=== PATIENT | female | born 1950 | race Caucasian/White ===

== ENCOUNTER → 2018-02-27 | Outpatient (CLI) | payer MEDICARE, BC, OTHER ==
[2018-02-27 16:46] LABS: CHOLESTEROL LEVEL 200 MG/DL (<200); CHOLESTEROL RISK RATIO 2.857 (<5); GLUCOSE, FASTING 89 MG/DL (70-100); HDL CHOLESTEROL 70 MG/DL (>40); NON-HDL-C 130 MG/DL; TRIGLYCERIDES LEVEL 65 MG/DL (<150)
[2018-02-27 16:51] LABS: ESTIMATED AVERAGE GLUCOSE 114 MG/DL (60-110); HEMOGLOBIN A1c 5.6 %
== END ==
LOC: M ADAMS 09:50
DX: Z51.81 Encounter for therapeutic drug level monitoring (principal); Z79.899 Other long term (current) drug therapy
CPT/HCPCS: 82947

== ENCOUNTER → 2019-04-21 | Outpatient (REF) | payer MEDICARE, OTHER ==
[~2019-04-21] MED LIST: ACET65TA OR; ASPI81TA83 OR; CALC600T60 PO; CALCIUM WITH VIT D; COUM1TAB18; CYMBALTA PO; FOSA70TA PO; HYDR10TA3 OR; IBUP400T OR; LAMI1TAB6 OR; LATA0.0013 OU; MULTCAP PO; MULTLIQ7; OXYC-141 PO; PERC5TAB12 PO; PERC5TAB8; PROZ20CA11 PO; RISP3TAB16; THERGRAN; TRAZ50TA OR; TRIC145T19; TYLE167L PO; TYLE500T78 PO; VALI10TA; VALI5TAB; VALS40TA; VICO5TAB; VITA100067 PO; XALATAN OU; ZETI10TA; ZOLO100T; haldol PO; viactiv PO
== END ==
LOC: M SFHCPLAZ 17:34
PROVIDERS: ATTEND Dermatology
DX: C44.529 Squamous cell carcinoma of skin of other part of trunk (principal)

== ENCOUNTER → 2019-06-24 | Outpatient (CLI) | payer MEDICARE, BC ==
--- NOTE | 2019-06-24 09:22 | REP ---
BILATERAL SCREENING DIGITAL MAMMOGRAM WITH 3D TOMOSYNTHESIS: There are no palpable abnormalities or other breast complaints. The the patient states she has not had a clinical breast examination in over a year. The the patient states she performs self-breast examinations four times per year. The Tyrer-Cuzick Score is: 12.1% . Comparison is 07/11/2014. There are scattered areas of fibroglandular density. There is no dominant mass, micro calcific cluster or architectural distortion that would indicate malignancy. There are no additional findings on 3D tomosynthesiss. There is no change from the prior study. Impression: BIRADS/ACR category 1 mammogram. Negative. Recommendation: Routine annual screening mammography. This mammogram was interpreted with the aid of a FDA approved computer-aided detection system. A. Negative mammogram reports should not delay biopsy if a dominant or clinically suspicious mass is present. B. Not all breast cancers are identified by mammography or tomosynthesis. C. Adenosis and dense breasts may obscure an underlying neoplasm. Patient letter M1. Electronically Signed by Chester Chang MD 06/24/2019 09:14 A
== END ==
LOC: M WHC 08:07
PROVIDERS: ATTEND Internal Medicine
DX: Z12.31 Encounter for screening mammogram for malignant neoplasm of breast (principal)

== ENCOUNTER → 2019-07-19 | Outpatient (REF) | payer MEDICARE, OTHER | LOC: M SFHCPLAZ 19:22 | PROVIDERS: ATTEND Dermatology | DX: L90.5 Scar conditions and fibrosis of skin (principal) ==

== ENCOUNTER → 2019-08-31 | Outpatient (REF) | payer MEDICARE, OTHER ==
[2019-08-31 20:23] LABS: CHOLESTEROL RISK RATIO 2.698 (<5)
[2019-08-31 20:35] LABS: HEMOGLOBIN A1c 5.7 %
== END ==
LOC: M LABDRWAD 19:27
PROVIDERS: ATTEND Psychiatry & Neurology Psychiatry
DX: Z79.899 Other long term (current) drug therapy (principal)

== ENCOUNTER → 2019-08-31 | Outpatient (REF) | payer MEDICARE, OTHER | LOC: M SFHCPLAZ 16:58 | PROVIDERS: ATTEND Dermatology | DX: L57.0 Actinic keratosis (principal); Z79.899 Other long term (current) drug therapy ==

== ENCOUNTER → 2019-11-29 | Outpatient (REF) | payer MEDICARE, OTHER ==
[2019-11-29 12:43] LABS: ALT/SGPT 27 U/L (12-78); BILIRUBIN,TOTAL 0.4 MG/DL (0.2-1.0); BLOOD UREA NITROGEN 15 MG/DL (7-18); CARBON DIOXIDE LEVEL 29 MEQ/L (21-32); CHLORIDE LEVEL 103 MEQ/L (98-107); CREATININE FOR GFR 0.81 MG/DL (0.55-1.30); GLOMERULAR FILTRATION RATE > 60.0 (>45); GLUCOSE, FASTING 76 MG/DL (70-100); POTASSIUM SERUM 4.6 MEQ/L (3.5-5.1); SODIUM LEVEL 138 MEQ/L (136-145); TOTAL PROTEIN 7.3 GM/DL (6.4-8.2)
== END ==
LOC: M LABDRWAD 12:18
PROVIDERS: ATTEND Internal Medicine
DX: M81.8 Other osteoporosis without current pathological fracture (principal)

== ENCOUNTER → 2020-04-25 | Outpatient (REF) | payer MEDICARE, OTHER | LOC: M LAB REF 07:56 | PROVIDERS: ATTEND Dermatology | DX: L57.0 Actinic keratosis (principal) ==

== ENCOUNTER → 2020-05-20 | Outpatient (CLI) | payer MEDICARE, BC, OTHER | LOC: M LABSMTC 09:28 | PROVIDERS: ATTEND Orthopaedic Surgery | DX: Z03.818 Encounter for observation for suspected exposure to other biological agents ruled out (principal) ==

== ENCOUNTER → 2020-05-31 | Outpatient (CLI) | payer MEDICARE, BC, OTHER | LOC: M LABSMTC 10:07 | PROVIDERS: ATTEND Orthopaedic Surgery | DX: Z11.59 Encounter for screening for other viral diseases (principal); Z03.89 Encounter for observation for other suspected diseases and conditions ruled out ==

== ENCOUNTER → 2020-06-16 | Outpatient (CLI) | payer MEDICARE, BC, OTHER | LOC: M LABSMTC 08:21 | PROVIDERS: ATTEND Orthopaedic Surgery | DX: Z01.818 Encounter for other preprocedural examination (principal); Z11.59 Encounter for screening for other viral diseases ==

== ENCOUNTER → 2020-07-02 | Outpatient (CLI) | payer MEDICARE, BC ==
--- NOTE | 2020-07-24 14:44 | REPMRS ---
Patient History The patient states she has not had a clinical breast exam in over a year. Patient is postmenopausal and has history of other cancer at age 54. Family history of breast cancer at age 38 in sister, endometrial cancer at age 50 or over in sister. Benign incisional biopsy of the left breast, May 28, 2007. No Hormone Replacement Therapy Digital Woman Screen Mammo: July 02, 2020 - Exam #: [id number] Bilateral CC and MLO view(s) were taken. Technologist: Iveth Mcclendon, Technologist Prior study comparison: June 24, 2019, bilateral digital woman screen mammo performed at [facility]. May 31, 2018, bilateral digital mammo screening bilat, performed at [facility]. May 15, 2017, bilateral digital mammo screening bilat, performed at [facility]. FINDINGS: There are scattered fibroglandular densities. The Volpara volumetric breast density category is:B. There has been no change in the appearance of the mammogram from the prior studies. There is a mild amount of scattered fibroglandular density which is fairly symmetric. There is no interval development of dominant mass, architectural distortion, or grouped microcalcification suggestive of malignancy. 3-D tomosynthesis shows no additional findings. Report was delayed due to a protracted computer network disruption experienced by this facility. Assessment: BI-RADS/ACR category 1 mammogram. Negative Mammogram. Recommendation Routine screening mammogram of both breasts in 1 year (for women over age 40). This patient's Lifetime Breast Cancer Risk is estimated at 11.4 %. This mammogram was interpreted with the aid of an FDA-approved computer-aided dectection system. Electronically Signed By: Jasper Tomlinson MD 07/24/20 [id number]
--- NOTE | 2020-08-15 15:16 | DEXA ---
AP SPINE L1 - L4 1.165 -0.1 1.5 LT FEMUR TOTAL 0.841 -1.3 0.1 LT NECK 0.870 -1.2 0.5 RT FEMUR TOTAL 0.816 -1.5 0.0 RT NECK 0.770 -1.9 -0.2 TOTAL BODY TOTAL OTHER COMMENTS: Normal Bone Densitometry of the spine. There is low bone density of the hips. The density of the spine has increased 6.7% since the initial exam on 03/23/2002. The increased 4.1% since the most recent exam on 05/31/2018. The density of the left hip has decreased 20.1% since the initial exam on 03/23/2002. The density of the left hip has increased 4.5% since the most recent exam on 05/31/2018. The density of the right hip has decreased 22.5% since the initial exam on 03/23/2002. The density of the right hip has decreased 0.4% since the most recent exam on 05/31/2018. FOLLOW-UP: Recommendation for the next bone density exam: 2 years.. ANTHONY
== END ==
LOC: M WHC 06:54
PROVIDERS: ATTEND Internal Medicine
DX: Z12.31 Encounter for screening mammogram for malignant neoplasm of breast (principal); M81.8 Other osteoporosis without current pathological fracture; Z78.0 Asymptomatic menopausal state; Z80.3 Family history of malignant neoplasm of breast; Z80.49 Family history of malignant neoplasm of other genital organs; Z86.018 Personal history of other benign neoplasm

== ENCOUNTER → 2020-09-09 | Outpatient (REF) | payer MEDICARE, BC | LOC: M LAB REF 12:49 | PROVIDERS: ATTEND Physician Assistant | DX: R39.15 Urgency of urination (principal) ==

== ENCOUNTER → 2020-09-13 | Outpatient (REF) | payer MEDICARE, BC ==
[2020-09-13 18:11] LABS: HEMOGLOBIN A1c 5.3 %
[2020-09-13 18:33] LABS: CHOLESTEROL RISK RATIO 3.237 (<5)
== END ==
LOC: M LAB REF 16:18 → M LABDRWAD 16:18
PROVIDERS: ATTEND Psychiatry & Neurology Psychiatry
DX: Z79.899 Other long term (current) drug therapy (principal)

== ENCOUNTER → 2020-10-18 | Outpatient (REF) | payer MEDICARE, OTHER | LOC: M LAB REF 13:42 | PROVIDERS: ATTEND Dermatology | DX: L82.1 Other seborrheic keratosis (principal) ==

== ENCOUNTER → 2020-12-24 | Outpatient (REF) | payer MEDICARE, OTHER | LOC: M LAB REF 12:36 | PROVIDERS: ATTEND Nurse Practitioner Family | DX: R30.0 Dysuria (principal) ==

== ENCOUNTER → 2021-07-03 | Outpatient (CLI) | payer MEDICARE, BC ==
[2021-07-03 11:33] LABS: CHOLESTEROL RISK RATIO 2.823 (<5)
[2021-07-03 11:34] LABS: HEMOGLOBIN A1c 5.7 %
== END ==
LOC: M PLALAB 09:05
PROVIDERS: ATTEND Psychiatry & Neurology Psychiatry
DX: Z79.899 Other long term (current) drug therapy (principal)

== ENCOUNTER → 2022-08-11 | Outpatient (CLI) | payer MEDICARE, BC, OTHER ==
[~2022-08-11] MED LIST changes: +ALEN70TA87 PO; -FOSA70TA PO
== END ==
LOC: M RAD 13:35
PROVIDERS: ATTEND Physician Assistant
DX: M25.561 Pain in right knee (principal)

== ENCOUNTER → 2022-08-20 | Outpatient (CLI) | payer MEDICARE, BC, OTHER | LOC: M WHC 11:49 | PROVIDERS: ATTEND Internal Medicine | DX: Z12.31 Encounter for screening mammogram for malignant neoplasm of breast (principal); Z80.3 Family history of malignant neoplasm of breast ==

== ENCOUNTER → 2022-08-27 | Outpatient (CLI) | payer MEDICARE, BC, OTHER ==
[2022-08-27 13:35] LABS: HEMOGLOBIN A1c 5.7 %
[2022-08-27 14:03] LABS: CHOLESTEROL RISK RATIO 2.847 (<5)
== END ==
LOC: M ADAMS 10:57
PROVIDERS: ATTEND Psychiatry & Neurology Psychiatry
DX: Z79.899 Other long term (current) drug therapy (principal)

== ENCOUNTER → 2022-09-17 | Outpatient (REF) | payer MEDICARE, OTHER ==
[2022-09-18 10:32] LABS: BASO % 0.4 % (0.0-1.0); EOS # 0.2 10^3/uL (0.0-0.5); EOS % 3.5 % (0.0-3.0); HEMATOCRIT 37.4 % (36.0-47.0); HEMOGLOBIN 12.4 g/dl (12.0-15.5); LYMPH # 1.3 10^3/uL (1.5-5.0); LYMPH % 23.2 % (24.0-44.0); MEAN CORPUSCULAR HEMOGLOBIN 32.2 pg (27.0-33.0); MEAN CORPUSCULAR HGB CONC 33.2 g/dl (32.0-36.5); MEAN CORPUSCULAR VOLUME 97.1 fl (80.0-96.0); MONO # 0.7 10^3/uL (0.0-0.8); MONO % 12.5 % (2.0-8.0); NEUTROPHILS # 3.4 10^3/uL (1.5-8.5); PLATELET COUNT, AUTOMATED 283 10^3/uL (150-450); RED BLOOD COUNT 3.85 10^6/uL (4.00-5.40); WHITE BLOOD COUNT 5.7 10^3/uL (4.0-10.0)
[2022-09-18 11:39] LABS: ERYTHROCYTE SEDIMENTATION RATE 15 mm/hr (0-30)
[2022-09-18 11:54] LABS: C REACTIVE PROTEIN QUANTITATIV 0.59 MG/DL (0.00-0.30); RHEUMATOID FACTOR QUANT < 10.0 IU/ML (<15.0)
== END ==
LOC: M LABDRWAD 09:35
PROVIDERS: ATTEND Physician Assistant
DX: Z96.651 Presence of right artificial knee joint (principal)

== ENCOUNTER → 2022-10-01 | Outpatient (REF) | payer MEDICARE, OTHER ==
[2022-10-01 19:33] LABS: SOURCE, BODY FLUID RT KNEE; SYNOVIAL FLUID COLOR AMBER (COLORLESS)
[2022-10-01 19:54] LABS: CRYSTALS, BODY FLUID NONE SEEN (NONE SEEN); SOURCE, BODY FLUID CRYSTALS RT KNEE
[2022-10-01 20:31] LABS: SOURCE, BODY FLUID GLUCOSE RT KNEE
== END ==
LOC: M LAB REF 17:50
PROVIDERS: ATTEND Orthopaedic Surgery
DX: M25.461 Effusion, right knee (principal)

== ENCOUNTER → 2022-11-11 | Outpatient (REF) | payer MEDICARE, OTHER ==
[2022-11-11 17:37] LABS: BASO % 0.4 % (0.0-1.0); EOS # 0.1 10^3/uL (0.0-0.5); EOS % 2.1 % (0.0-3.0); HEMATOCRIT 40.7 % (36.0-47.0); LYMPH % 29.6 % (24.0-44.0); MEAN CORPUSCULAR HEMOGLOBIN 31.4 pg (27.0-33.0); MEAN CORPUSCULAR HGB CONC 31.9 g/dl (32.0-36.5); MEAN CORPUSCULAR VOLUME 98.3 fl (80.0-96.0); MONO # 0.7 10^3/uL (0.0-0.8); MONO % 10.6 % (2.0-8.0); NEUTROPHILS # 3.9 10^3/uL (1.5-8.5); PLATELET COUNT, AUTOMATED 277 10^3/uL (150-450); RED BLOOD COUNT 4.14 10^6/uL (4.00-5.40); WHITE BLOOD COUNT 6.8 10^3/uL (4.0-10.0)
[2022-11-11 17:48] LABS: ALBUMIN 3.9 G/DL (3.2-5.2)
[2022-11-11 17:58] LABS: FERRITIN 65.3 NG/ML (7.3-270.7)
[2022-11-12 20:45] LABS: HEMOGLOBIN A1c 5.1 % (4.0-6.0)
== END ==
LOC: M LABDRWAD 16:11
PROVIDERS: ATTEND Orthopaedic Surgery
DX: Z00.00 Encounter for general adult medical examination without abnormal findings (principal); M17.11 Unilateral primary osteoarthritis, right knee; Z96.651 Presence of right artificial knee joint; M25.561 Pain in right knee; Z79.899 Other long term (current) drug therapy

== ENCOUNTER → 2023-07-03 | Outpatient (REF) | payer MEDICARE, OTHER | LOC: M SFHCDERM 14:17 | PROVIDERS: ATTEND Dermatology | DX: L72.0 Epidermal cyst (principal); L85.8 Other specified epidermal thickening ==

== ENCOUNTER → 2023-07-16 | Outpatient (REF) | payer MEDICARE, OTHER | LOC: M SFHCDERM 14:37 | PROVIDERS: ATTEND Dermatology | DX: Z48.02 Encounter for removal of sutures (principal) ==

== ENCOUNTER → 2023-08-07 | Outpatient (CLI) | payer MEDICARE, BC, OTHER ==
[2023-08-07 14:43] LABS: HEMOGLOBIN A1c 5.8 % (4.0-6.0)
[2023-08-07 14:44] LABS: CHOLESTEROL RISK RATIO 2.65 (<5); HDL CHOLESTEROL 64.8 MG/DL (>40); LDL CHOLESTEROL 91.2 MG/DL (<100); NON-HDL-C 107.2 MG/DL
== END ==
LOC: M PLALAB 11:34
PROVIDERS: ATTEND Psychiatry & Neurology Psychiatry
DX: Z79.899 Other long term (current) drug therapy (principal)

== ENCOUNTER → 2023-12-18 | Outpatient (REF) | payer MEDICARE, OTHER | LOC: M SFHCDERM 14:05 | PROVIDERS: ATTEND Dermatology | DX: L57.8 Other skin changes due to chronic exposure to nonionizing radiation (principal); L90.5 Scar conditions and fibrosis of skin ==

== ENCOUNTER → 2023-12-21 | Outpatient (REF) | payer MEDICARE, OTHER ==
[2023-12-21 14:50] LABS: BLOOD UREA NITROGEN 14 MG/DL (9-23); CARBON DIOXIDE LEVEL 29 MMOL/L (20-31); CHLORIDE LEVEL 104 MMOL/L (98-107); CREATININE FOR GFR 0.66 MG/DL (0.55-1.30); GLOMERULAR FILTRATION RATE > 60.0 (>39); GLUCOSE, FASTING 98 MG/DL (74-106); POTASSIUM SERUM 4.2 MMOL/L (3.5-5.1); SODIUM LEVEL 137 MMOL/L (136-145)
== END ==
LOC: M LABDRWAD 12:44
PROVIDERS: ATTEND Internal Medicine
DX: I10 Essential (primary) hypertension (principal)

== ENCOUNTER → 2024-01-08 | Outpatient (CLI) | payer MEDICARE, BC, OTHER | LOC: M WHC 09:49 | PROVIDERS: ATTEND Internal Medicine | DX: Z12.31 Encounter for screening mammogram for malignant neoplasm of breast (principal); M81.8 Other osteoporosis without current pathological fracture; M85.89 Other specified disorders of bone density and structure, multiple sites ==

== ENCOUNTER 2024-05-20 23:14 | Emergency (ER) | payer MEDICARE, BC ==
[~2024-05-20] VITALS: Ht 162.6 cm; Wt 71.8 kg
[2024-05-21] MEDS: NS 1,000 ML IV ONE (00:01)
[2024-05-21] MEDS ORDERED: QUET400T2 (00:14)
[2024-05-21 00:17] LABS: BASO % 0.7 % (0.0-1.0); EOS # 0.1 10^3/uL (0.0-0.5); EOS % 1.9 % (0.0-3.0); HEMATOCRIT 32.7 % (36.0-47.0); LYMPH # 1.5 10^3/uL (1.5-5.0); LYMPH % 35.1 % (24.0-44.0); MEAN CORPUSCULAR HEMOGLOBIN 31.6 pg (27.0-33.0); MEAN CORPUSCULAR HGB CONC 33.6 g/dl (32.0-36.5); MONO # 0.4 10^3/uL (0.0-0.8); MONO % 9.7 % (2.0-8.0); NEUTROPHILS # 2.2 10^3/uL (1.5-8.5); NEUTROPHILS % 52.1 % (36.0-66.0); PLATELET COUNT, AUTOMATED 231 10^3/uL (150-450); RED BLOOD COUNT 3.48 10^6/uL (4.00-5.40); WHITE BLOOD COUNT 4.1 10^3/uL (4.0-10.0)
[2024-05-21 00:33] LABS: ALBUMIN 3.2 G/DL (3.2-5.2); ALKALINE PHOSPHATASE 109 U/L (46-116); ALT/SGPT 16 U/L (7.0-40); AST/SGOT 16 U/L (<34); BILIRUBIN,TOTAL 0.2 MG/DL (0.3-1.2); BLOOD UREA NITROGEN 20 MG/DL (9-23); CALCIUM LEVEL 9.1 MG/DL (8.3-10.6); CARBON DIOXIDE LEVEL 24 MMOL/L (20-31); CHLORIDE LEVEL 111 MMOL/L (98-107); CREATININE FOR GFR 0.62 MG/DL (0.55-1.30); GLOMERULAR FILTRATION RATE > 60.0 (>39); GLUCOSE, FASTING 134 MG/DL (74-106); MAGNESIUM LEVEL 1.5 MG/DL (1.8-2.4); POTASSIUM SERUM 3.6 MMOL/L (3.5-5.1); SODIUM LEVEL 143 MMOL/L (136-145); TOTAL PROTEIN 5.7 G/DL (5.7-8.2)
[2024-05-21 00:34] LABS: THYROID STIMULATING HORMONE 3.888 uIU/ML (0.55-4.78)
[2024-05-21 00:35] LABS: FREE T4 1.18 NG/DL (0.89-1.76)
[2024-05-21 00:37] LABS: CPK CREATINE PHOSPHOKINASE 97 U/L (34-145); MB/CK RELATIVE INDEX 1.03 (< OR =4)
[2024-05-21] MEDS: MAG SULF 1GM/100ML (MAG RUN) 1 GM in IV 1 EA IV ONE (01:14)
[2024-05-21 01:44] LABS: CK-MB VALUE MASS 1.1 NG/ML (<3.6)
[2024-05-21 01:45] LABS: MB/CK RELATIVE INDEX 1.05 (< OR =4)
[2024-05-21] MEDS ORDERED: KETO2CR EXT (03:54)
[2024-05-21] MEDS ORDERED: XALA0.007 OU (03:54)
[2024-05-21] MEDS ORDERED: VITA100093 PO (03:54)
[2024-05-21] MEDS ORDERED: ACET-897 PO (03:54)
[2024-05-21] MEDS ORDERED: REST0.05 OU (03:54)
[2024-05-21] MEDS ORDERED: METO1TAB32 PO (03:54)
[2024-05-21] MEDS ORDERED: MULT-40 PO (03:54)
[2024-05-21] MEDS ORDERED: FLUC150T9 PO (03:54)
[2024-05-21] MEDS ORDERED: QUET400T2 PO (03:54)
[2024-05-21] MEDS ORDERED: HOME MED LIST COMPLETE! XX SCH (03:55)
[2024-05-21] MEDS ORDERED: HEPARIN SOD (PORCINE) 5000UNITS/ML 1ML VIAL/SYRINGE IV PRN (05:50)
[2024-05-21] MEDS: HEPARIN SOD (PORCINE) 5000UNITS/ML 1ML VIAL/SYRINGE IV ONE (06:08)
[2024-05-21] MEDS: HEPARIN DRIP 25,000 UNITS in IV 1 EA IV SCH (06:09)
[2024-05-21] MEDS ORDERED: NITROGLYCERIN 0.4MG SUBL TABLET SL PRN (07:50)
[2024-05-21 08:00] VITALS: BP 170/84; TEMP 97.8; O2SAT 94
== END 2024-05-21 08:06 | disposition short-term general hospital (02) ==
LOC: EDBD 23:14 → M ED 23:14
DX: I20.0 Unstable angina (principal); R00.2 Palpitations; R79.89 Other specified abnormal findings of blood chemistry; F10.10 Alcohol abuse, uncomplicated; Z88.5 Allergy status to narcotic agent; Z79.1 Long term (current) use of non-steroidal anti-inflammatories (NSAID); Z79.810 Long term (current) use of selective estrogen receptor modulators (SERMs); Z79.899 Other long term (current) drug therapy
CPT/HCPCS: 70450; 71046; 80053; 82550; 82553; 83735; 83880; 84439; 84443; 84484; 85025; 85730; 93005; 94760; 96365; 96374; 96375; 99285; J3475

== ENCOUNTER → 2024-07-21 | Outpatient (REF) | payer MEDICARE, BC ==
[~2024-07-21] MED LIST changes: +ACET-897 PO; +FLUC150T9 PO; +KETO2CR EXT; +METO1TAB32 PO; +MULT-40 PO; +QUET400T2; +QUET400T2 PO; +REST0.05 OU; +VITA100093 PO; +XALA0.007 OU
[2024-07-21 13:54] LABS: HEMOGLOBIN A1c 5.7 % (4.0-6.0)
[2024-07-21 14:01] LABS: CHOLESTEROL RISK RATIO 2.67 (<5); HDL CHOLESTEROL 46.8 MG/DL (>40); LDL CHOLESTEROL 58.2 MG/DL (<100); NON-HDL-C 78.2 MG/DL
== END ==
LOC: M LABDRWAD 12:59
PROVIDERS: ATTEND Psychiatry & Neurology Psychiatry
DX: Z79.899 Other long term (current) drug therapy (principal)

== ENCOUNTER → 2024-09-27 | Outpatient (REF) | payer MEDICARE, BC ==
[2024-09-27 16:08] LABS: BASO % 0.5 % (0.0-1.0); EOS # 0.2 10^3/uL (0.0-0.5); EOS % 3.2 % (0.0-3.0); HEMATOCRIT 41.2 % (36.0-47.0); HEMOGLOBIN 13.4 g/dl (12.0-15.5); LYMPH # 1.8 10^3/uL (1.5-5.0); MEAN CORPUSCULAR HEMOGLOBIN 31.1 pg (27.0-33.0); MEAN CORPUSCULAR HGB CONC 32.5 g/dl (32.0-36.5); MEAN CORPUSCULAR VOLUME 95.6 fl (80.0-96.0); MONO # 0.7 10^3/uL (0.0-0.8); MONO % 11.2 % (2.0-8.0); NEUTROPHILS # 3.2 10^3/uL (1.5-8.5); NEUTROPHILS % 54.9 % (36.0-66.0); PLATELET COUNT, AUTOMATED 291 10^3/uL (150-450); RED BLOOD COUNT 4.31 10^6/uL (4.00-5.40); WHITE BLOOD COUNT 5.9 10^3/uL (4.0-10.0)
[2024-09-27 16:12] LABS: ALKALINE PHOSPHATASE 189 U/L (35-104); ALT/SGPT 42 U/L (7.0-40); AST/SGOT 33 U/L (<34); BILIRUBIN,TOTAL 0.5 MG/DL (0.3-1.2); BLOOD UREA NITROGEN 15 MG/DL (9-23); CALCIUM LEVEL 10.3 MG/DL (8.3-10.6); CARBON DIOXIDE LEVEL 30 MMOL/L (20-31); CHLORIDE LEVEL 104 MMOL/L (98-107); CHOLESTEROL LEVEL 131 MG/DL (<200); CHOLESTEROL RISK RATIO 2.06 (<5); CREATININE FOR GFR 0.63 MG/DL (0.55-1.30); GLOMERULAR FILTRATION RATE > 60.0 (>39); GLUCOSE, FASTING 97 MG/DL (74-106); HDL CHOLESTEROL 63.4 MG/DL (>40); NON-HDL-C 67.6 MG/DL; POTASSIUM SERUM 4.2 MMOL/L (3.5-5.1); SODIUM LEVEL 139 MMOL/L (136-145); TOTAL PROTEIN 7.2 G/DL (5.7-8.2); TRIGLYCERIDES LEVEL 118 MG/DL (<150)
== END ==
LOC: M LABDRWAD 13:57
PROVIDERS: ATTEND Internal Medicine
DX: I24.9 Acute ischemic heart disease, unspecified (principal)

== ENCOUNTER → 2025-03-29 | Outpatient (REF) | payer MEDICARE, BC ==
[2025-03-29 14:28] LABS: BASO % 0.4 % (0.0-1.0); EOS # 0.1 10^3/uL (0.0-0.5); EOS % 2.5 % (0.0-3.0); HEMATOCRIT 39.7 % (36.0-47.0); HEMOGLOBIN 13.2 g/dl (12.0-15.5); LYMPH # 1.8 10^3/uL (1.5-5.0); LYMPH % 40.6 % (24.0-44.0); MEAN CORPUSCULAR HEMOGLOBIN 32.1 pg (27.0-33.0); MEAN CORPUSCULAR HGB CONC 33.2 g/dl (32.0-36.5); MEAN CORPUSCULAR VOLUME 96.6 fl (80.0-96.0); MONO # 0.7 10^3/uL (0.0-0.8); MONO % 14.5 % (2.0-8.0); NEUTROPHILS # 1.9 10^3/uL (1.5-8.5); NEUTROPHILS % 41.8 % (36.0-66.0); PLATELET COUNT, AUTOMATED 261 10^3/uL (150-450); RED BLOOD COUNT 4.11 10^6/uL (4.00-5.40); WHITE BLOOD COUNT 4.5 10^3/uL (4.0-10.0)
[2025-03-29 14:30] LABS: ALBUMIN 4.1 G/DL (3.2-5.2); ALKALINE PHOSPHATASE 140 U/L (35-104); ALT/SGPT 37 U/L (7.0-40); AST/SGOT 36 U/L (<34); BILIRUBIN,TOTAL 0.6 MG/DL (0.3-1.2); BLOOD UREA NITROGEN 12 MG/DL (9-23); CARBON DIOXIDE LEVEL 30 MMOL/L (20-31); CHLORIDE LEVEL 104 MMOL/L (98-107); CHOLESTEROL LEVEL 143 MG/DL (<200); CHOLESTEROL RISK RATIO 2.27 (<5); CREATININE FOR GFR 0.62 MG/DL (0.55-1.30); GLOMERULAR FILTRATION RATE > 90.0 (>39); GLUCOSE, FASTING 95 MG/DL (74-106); HDL CHOLESTEROL 62.9 MG/DL (>40); LDL CHOLESTEROL 61.5 MG/DL (<100); NON-HDL-C 80.1 MG/DL; POTASSIUM SERUM 4.3 MMOL/L (3.5-5.1); SODIUM LEVEL 141 MMOL/L (136-145); TOTAL PROTEIN 7.2 G/DL (5.7-8.2); TRIGLYCERIDES LEVEL 93 MG/DL (<150)
== END ==
LOC: M LABDRWAD 13:00
PROVIDERS: ATTEND Internal Medicine
DX: I10 Essential (primary) hypertension (principal); E78.5 Hyperlipidemia, unspecified; I25.10 Atherosclerotic heart disease of native coronary artery without angina pectoris

== ENCOUNTER → 2025-06-05 | Outpatient (CLI) | payer MEDICARE, BC ==
[~2025-06-05] MED LIST changes: +ATOR40TA75 PO; +ECOT81TA5 PO; +METO1TAB7 PO; +QUET300T2 PO; +REXU1TAB3 PO; +TRAZ-252 PO; +VRAY1.5C PO
== END ==
LOC: M WHC 11:00
PROVIDERS: ATTEND Internal Medicine
DX: Z12.31 Encounter for screening mammogram for malignant neoplasm of breast (principal); R92.323 Mammographic fibroglandular density, bilateral breasts

== ENCOUNTER → 2025-07-02 | Outpatient (REF) | payer MEDICARE, BC ==
[~2025-07-02] MED LIST changes: -PROZ20CA11 PO; +PROZ20CA12 PO
[2025-07-02 18:01] LABS: APPEARANCE, URINE MANUAL CLEAR (CLEAR); COLOR, URINE MANUAL ORANGE (YELLOW)
[2025-07-02 18:02] LABS: BILIRUBIN, URINE MANUAL OBSCURED (NEGATIVE); BLOOD URINE MANUAL NEGATIVE (NEGATIVE); GLUCOSE, URINE (UA) MANUAL NEGATIVE (NEGATIVE); KETONE, URINE MANUAL NEGATIVE (NEGATIVE); LEUKOCYTE ESTERASE, URINE MAN OBSCURED (NEGATIVE); NITRITE, URINE MANUAL OBSCURED (NEGATIVE); PH,URINE MAN 6.0 UNITS (5.0 - 7.0); PROTEIN, URINE MANUAL NEGATIVE (NEGATIVE); SPECIFIC GRAVITY,URINE MANUAL 1.015 (1.002-1.035); UROBILINOGEN, URINE MANUAL OBSCURED mg/dl (NORMAL)
[2025-07-02 19:58] LABS: BACTERIA, URINE NONE SEEN; HYALINE CAST, URINE NONE SEEN /lpf (0-1); RBC, URINE NONE SEEN /hpf (0-3); SQUAMOUS EPITHELIAL CELL URINE SMALL AMOUNT /hpf (SMALL AMT); WBC, URINE 0-1 /hpf (0-3)
== END ==
LOC: M LAB REF 16:51
DX: N39.0 Urinary tract infection, site not specified (principal)

== ENCOUNTER → 2025-07-18 | Outpatient (REF) | payer MEDICARE, OTHER ==
[2025-07-18 14:28] LABS: CHOLESTEROL LEVEL 139.0 MG/DL (<200); CHOLESTEROL RISK RATIO 2.5 (<5); GLUCOSE,RANDOM 93.0 MG/DL (LESS THAN 200); LDL CHOLESTEROL 59.8 MG/DL (<100); NON-HDL-C 83.4 MG/DL; TRIGLYCERIDES LEVEL 118.0 MG/DL (<150)
[2025-07-18 14:50] LABS: ESTIMATED AVERAGE GLUCOSE 114.0 MG/DL (60-110)
== END ==
LOC: M LABDRWAD 13:16
PROVIDERS: ATTEND Psychiatry & Neurology Psychiatry
DX: Z79.899 Other long term (current) drug therapy (principal)